=== PATIENT | female | born 1980 | race Asian ===

== ENCOUNTER 2017-02-07 15:35 | Outpatient (RCR) | payer OTHER | END 2017-05-08 | disposition home or self-care (01) | LOC: PT | DX: M51.36 Other intervertebral disc degeneration, lumbar region (principal) ==

== ENCOUNTER 2019-01-29 08:30 | Outpatient (RCR) | payer OTHER | END 2019-01-29 09:00 | LOC: PT 08:30 | DX: M35.7 Hypermobility syndrome (principal); G89.4 Chronic pain syndrome ==

== ENCOUNTER 2019-07-08 15:00 | Outpatient (RCR) | payer OTHER | END 2019-07-08 15:30 | disposition still patient (30) | LOC: PT 15:00 | DX: M25.552 Pain in left hip (principal) ==

== ENCOUNTER → 2022-03-05 | Outpatient (CLI) | payer OTHER ==
[2022-03-05 09:55] LABS: BASO # 0.08 K/mm3 (0.02-0.10); EOS # 0.12 K/mm3 (0.04-0.40); HEMATOCRIT 39.3 % (37.0-47.0); HEMOGLOBIN 12.6 g/dL (12.5-16.0); LYMPH# 1.71 K/mm3 (1.50-4.00); MEAN CELL VOLUME 86 fl (78-100); MEAN CORPUSCULAR HEMOGLOBIN 28 pg (27-31); MEAN CORPUSCULAR HGB CONC 32 g/dL (33-37); MEAN PLATELET VOLUME 10.6 fl (7.4-10.4); MONO # 0.47 K/mm3 (0.20-0.80); NEU # 3.69 K/mm3 (1.40-6.50); PLATELET COUNT 246 K/mm3 (130-400); RED BLOOD COUNT 4.55 M/mm3 (4.10-5.30); RED CELL DISTRIBUTION WIDTH 13.9 % (11.5-14.5); WHITE BLOOD COUNT 6.1 K/mm3 (4.8-10.8)
[2022-03-05 10:09] LABS: ALBUMIN 4.1 g/dL (3.5-5.0)
[2022-03-05 10:10] LABS: CALCIUM 9.1 mg/dL (8.3-10.5)
[2022-03-05 10:11] LABS: TOTAL PROTEIN 6.5 g/dL (6.4-8.3)
[2022-03-05 10:13] LABS: TOTAL BILIRUBIN 0.8 mg/dL (0.2-1.2)
[2022-03-05 23:01] LABS: IMMUNOGLOBULIN E, TOTAL 21 IU/mL (0-100)
[2022-03-05 23:28] LABS: IGM,SERUM 101 mg/dL (33-293); IMMUNOGLOBULIN A 49 mg/dL (65-421); IMMUNOGLOBULIN G 849 mg/dL (552-1631)
== END ==
LOC: LAB 09:29
PROVIDERS: Internal Medicine
DX: K90.9 Intestinal malabsorption, unspecified (principal); I10 Essential (primary) hypertension; R06.00 Dyspnea, unspecified; R09.89 Other specified symptoms and signs involving the circulatory and respiratory systems

== ENCOUNTER → 2022-03-11 | Outpatient (CLI) | payer OTHER | LOC: VAS 12:54 → RAD 13:00 → VAS 13:00 | DX: R06.00 Dyspnea, unspecified (principal); R09.89 Other specified symptoms and signs involving the circulatory and respiratory systems ==

== ENCOUNTER → 2022-03-29 | Outpatient (CLI) | payer OTHER | LOC: LAB 09:04 | DX: Q79.60 Ehlers-Danlos syndrome, unspecified (principal); R19.7 Diarrhea, unspecified; R93.1 Abnormal findings on diagnostic imaging of heart and coronary circulation; Z82.49 Family history of ischemic heart disease and other diseases of the circulatory system ==

== ENCOUNTER → 2022-04-03 | Outpatient (CLI) | payer OTHER | LOC: RAD 07:57 | DX: I25.10 Atherosclerotic heart disease of native coronary artery without angina pectoris (principal) | CPT/HCPCS: Q9967 ==

== ENCOUNTER → 2022-04-16 | Outpatient (CLI) | payer OTHER | LOC: LAB 08:47 | DX: Z00.00 Encounter for general adult medical examination without abnormal findings (principal); G89.4 Chronic pain syndrome; Q79.60 Ehlers-Danlos syndrome, unspecified; I10 Essential (primary) hypertension; F11.20 Opioid dependence, uncomplicated; K90.9 Intestinal malabsorption, unspecified; D84.9 Immunodeficiency, unspecified; I77.810 Thoracic aortic ectasia ==

== ENCOUNTER → 2023-01-14 | Outpatient (CLI) | payer BC | LOC: RAD 13:14 | DX: M25.552 Pain in left hip (principal) ==

== ENCOUNTER → 2023-06-03 | Outpatient (CLI) | payer BC | LOC: MAMMO 05-27 14:30 | DX: Z12.31 Encounter for screening mammogram for malignant neoplasm of breast (principal) ==

== ENCOUNTER → 2023-06-12 | Outpatient (CLI) | payer BC | LOC: RAD 12:15 | DX: Z12.31 Encounter for screening mammogram for malignant neoplasm of breast (principal) ==

== ENCOUNTER → 2023-08-01 | Outpatient (CLI) | payer BC ==
[2023-08-01 09:30] LABS: BASO # 0.05 K/mm3 (0.02-0.10); EOS # 0.11 K/mm3 (0.04-0.40); EOS % 1.7 % (1.0-5.0); HEMOGLOBIN 12.8 g/dL (12.5-16.0); LYMPH# 1.93 K/mm3 (1.50-4.00); MEAN CELL VOLUME 89 fl (78-100); MEAN CORPUSCULAR HEMOGLOBIN 29 pg (27-31); MEAN CORPUSCULAR HGB CONC 32 g/dL (33-37); MEAN PLATELET VOLUME 10.2 fl (7.4-10.4); MONO # 0.61 K/mm3 (0.20-0.80); PLATELET COUNT 243 K/mm3 (130-400); RED BLOOD COUNT 4.49 M/mm3 (4.10-5.30); RED CELL DISTRIBUTION WIDTH 14.3 % (11.5-14.5); WHITE BLOOD COUNT 6.3 K/mm3 (4.8-10.8)
[2023-08-01 09:38] LABS: ALBUMIN 4.1 g/dL (3.5-5.0)
[2023-08-01 09:40] LABS: CALCIUM 9.3 mg/dL (8.3-10.5)
[2023-08-01 09:41] LABS: TOTAL PROTEIN 6.6 g/dL (6.4-8.3)
[2023-08-01 09:43] LABS: TOTAL BILIRUBIN 0.6 mg/dL (0.2-1.2)
[2023-08-01 11:29] LABS: ERYTHROCYTE SEDIMENTATION RATE 5 mm/hr (0-20)
== END ==
LOC: LAB 09:09
PROVIDERS: Internal Medicine
DX: Z00.00 Encounter for general adult medical examination without abnormal findings (principal); Z12.39 Encounter for other screening for malignant neoplasm of breast; M46.1 Sacroiliitis, not elsewhere classified; E78.2 Mixed hyperlipidemia; G89.4 Chronic pain syndrome; Q79.60 Ehlers-Danlos syndrome, unspecified; I10 Essential (primary) hypertension; F11.20 Opioid dependence, uncomplicated; K90.9 Intestinal malabsorption, unspecified; D84.9 Immunodeficiency, unspecified; I77.810 Thoracic aortic ectasia

== ENCOUNTER → 2023-09-25 | Outpatient (CLI) | payer BC ==
[2023-09-25 17:31] LABS: PH-URINE 5.5 (5.0 - 8.0); URINE APPEARANCE SLIGHTLY CLOUDY (CLEAR); URINE BILIRUBIN NEGATIVE (NEGATIVE); URINE COLOR LIGHT YELLOW (YELLOW); URINE GLUCOSE NEGATIVE (NEGATIVE); URINE KETONE NEGATIVE (NEGATIVE); URINE PROTEIN(semi-quant) NEGATIVE (NEGATIVE)
[2023-09-25 17:32] LABS: URINE BLOOD TRACE (NEGATIVE); URINE LEUKOCYTE ESTERASE 1+ (NEGATIVE); URINE NITRATE NEGATIVE (NEGATIVE)
== END ==
LOC: LAB 16:48
PROVIDERS: Internal Medicine
DX: N39.0 Urinary tract infection, site not specified (principal)

== ENCOUNTER → 2024-05-10 | Outpatient (CLI) | payer BC ==
[2024-05-10 15:07] LABS: BASO # 0.03 K/mm3 (0.02-0.10); EOS # 0.07 K/mm3 (0.04-0.40); HEMATOCRIT 38.9 % (37.0-47.0); HEMOGLOBIN 12.5 g/dL (12.5-16.0); LYMPH# 1.57 K/mm3 (1.50-4.00); MEAN CELL VOLUME 87 fl (78-100); MEAN CORPUSCULAR HEMOGLOBIN 28 pg (27-31); MEAN CORPUSCULAR HGB CONC 32 g/dL (33-37); MEAN PLATELET VOLUME 10.5 fl (7.4-10.4); MONO # 0.43 K/mm3 (0.20-0.80); NEU # 4.86 K/mm3 (1.40-6.50); PLATELET COUNT 249 K/mm3 (130-400); RED BLOOD COUNT 4.47 M/mm3 (4.10-5.30); RED CELL DISTRIBUTION WIDTH 13.9 % (11.5-14.5)
[2024-05-10 15:15] LABS: ALBUMIN 4.4 g/dL (3.5-5.0)
[2024-05-10 15:16] LABS: CALCIUM 9.5 mg/dL (8.3-10.5)
[2024-05-10 15:17] LABS: PH-URINE 6.5 (5.0 - 8.0); TOTAL PROTEIN 6.8 g/dL (6.4-8.3); URINE APPEARANCE CLEAR (CLEAR); URINE COLOR YELLOW (YELLOW)
[2024-05-10 15:18] LABS: URINE BILIRUBIN NEGATIVE (NEGATIVE); URINE BLOOD 1+ (NEGATIVE); URINE GLUCOSE NEGATIVE (NEGATIVE); URINE KETONE NEGATIVE (NEGATIVE); URINE LEUKOCYTE ESTERASE NEGATIVE (NEGATIVE); URINE NITRATE NEGATIVE (NEGATIVE); URINE PROTEIN(semi-quant) NEGATIVE (NEGATIVE)
[2024-05-10 15:19] LABS: TOTAL BILIRUBIN 0.5 mg/dL (0.2-1.2)
[2024-05-10 15:24] LABS: MAGNESIUM 1.96 mg/dL (1.60-2.60)
[2024-05-10 15:36] LABS: PARTIAL THROMBOPLASTIN TIME 22.4 SECONDS (21.0-32.0); PROTHROMBIN TIME 9.8 SECONDS (9.0-12.0)
== END ==
LOC: LAB 14:52
PROVIDERS: Internal Medicine
DX: Z01.811 Encounter for preprocedural respiratory examination (principal); Z01.810 Encounter for preprocedural cardiovascular examination; Z01.812 Encounter for preprocedural laboratory examination

== ENCOUNTER → 2024-08-25 | Outpatient (CLI) | payer BC | LOC: MAMMO 11:30 | DX: Z12.31 Encounter for screening mammogram for malignant neoplasm of breast (principal) ==

== ENCOUNTER → 2024-09-24 | Outpatient (CLI) | payer BC | LOC: RAD 14:57 | DX: R05.3 Chronic cough (principal) ==

== ENCOUNTER → 2024-10-25 | Outpatient (CLI) | payer BC ==
[2024-10-25 09:45] LABS: BASO # 0.05 K/mm3 (0.02-0.10); EOS % 1.7 % (1.0-5.0); HEMATOCRIT 39.9 % (37.0-47.0); HEMOGLOBIN 12.7 g/dL (12.5-16.0); LYMPH# 1.59 K/mm3 (1.50-4.00); MEAN CELL VOLUME 87 fl (78-100); MEAN CORPUSCULAR HEMOGLOBIN 28 pg (27-31); MEAN CORPUSCULAR HGB CONC 32 g/dL (33-37); MEAN PLATELET VOLUME 10.3 fl (7.4-10.4); NEU # 3.76 K/mm3 (1.40-6.50); PLATELET COUNT 226 K/mm3 (130-400); RED CELL DISTRIBUTION WIDTH 14.7 % (11.5-14.5)
[2024-10-25 09:59] LABS: ALBUMIN 4.3 g/dL (3.5-5.0)
[2024-10-25 10:00] LABS: CALCIUM 9.4 mg/dL (8.3-10.5)
[2024-10-25 10:01] LABS: TOTAL PROTEIN 7.1 g/dL (6.4-8.3)
[2024-10-25 10:03] LABS: TOTAL BILIRUBIN 0.7 mg/dL (0.2-1.2)
[2024-10-25 10:08] LABS: MAGNESIUM 1.72 mg/dL (1.60-2.60)
[2024-10-26 00:42] LABS: IGM,SERUM 104 mg/dL (33-293); IMMUNOGLOBULIN A 61 mg/dL (65-421); IMMUNOGLOBULIN G 839 mg/dL (552-1631)
[2024-10-26 01:01] LABS: IMMUNOGLOBULIN E, TOTAL <25 IU/mL (0-100)
[2024-10-26 13:12] LABS: ANA SCREEN with REFLEX Negative (Negative)
[2024-10-27 20:08] LABS: ANTI-CYC CITRULLINATED PEPT AB 3 units (0-19)
== END ==
LOC: LAB 09:21
PROVIDERS: Internal Medicine
DX: M46.1 Sacroiliitis, not elsewhere classified (principal); I10 Essential (primary) hypertension; K90.9 Intestinal malabsorption, unspecified; E78.2 Mixed hyperlipidemia; J18.9 Pneumonia, unspecified organism

== ENCOUNTER → 2024-11-09 | Outpatient (CLI) | payer BC ==
[2024-11-09 23:52] LABS: IGM,SERUM 116 mg/dL (33-293); IMMUNOGLOBULIN A 66 mg/dL (65-421); IMMUNOGLOBULIN G 889 mg/dL (552-1631)
== END ==
LOC: LAB 12:30
PROVIDERS: Internal Medicine
DX: D80.2 Selective deficiency of immunoglobulin A [IgA] (principal)